=== PATIENT | female | born 1975 | race Two or more races ===

== ENCOUNTER 2018-08-03 20:26 | Emergency (ER) | payer MEDICAID, OTHER ==
[~2018-08-03] VITALS: Ht 167.6 cm; Wt 86.2 kg
--- NOTE | 2018-08-03 20:50 | NUR ---
PT BIB SELF. COMP OF HAVING L SIDE FACIAL WEAKNESS. -NEURO DEFICITS NOTED. NO ACUTE DISTRESS. -N/V -DIZZINESS. +HEADACHE. PT AOX4. STROKE EVAL COMPLETE. MD AWARE OF PT CONDITION. AWAITING EVAL.
[2018-08-03 22:15] VITALS: BP 136/81
== END 2018-08-03 22:16 | disposition home or self-care (01) ==
LOC: ER 20:28
DX: G51.0 Bell's palsy (principal); R51 Headache; I10 Essential (primary) hypertension; F17.200 Nicotine dependence, unspecified, uncomplicated; Z88.6 Allergy status to analgesic agent
CPT/HCPCS: 70450; 99284; A4606

== ENCOUNTER 2019-06-08 09:59 | Emergency (ER) | payer MEDICAID ==
[~2019-06-08] VITALS: Ht 165.1 cm; Wt 88.0 kg
[2019-06-08 10:17] VITALS: BP 140/82
[2019-06-08] MEDS ORDERED: IBUPROFEN 600 MG TABLET PO ONE ×2 (11:00→11:17)
[2019-06-08] MEDS ORDERED: ONDANSETRON 4 MG TAB.RAPDIS SL ONE (11:00)
[2019-06-08] MEDS ORDERED: DEXAMETHASONE 1 MG TABLET PO ONE (11:00)
[2019-06-08] MEDS ORDERED: DEXAMETHASONE 1 MG TABLET ONE (11:16)
[2019-06-08] MEDS ORDERED: ONDANSETRON 4 MG TAB.RAPDIS ONE (11:17)
[2019-06-08] MEDS ORDERED: DEXAMETHASONE 4 MG TABLET ONE (11:17)
== END 2019-06-08 12:03 | disposition home or self-care (01) ==
LOC: ER 10:03
DX: M77.11 Lateral epicondylitis, right elbow (principal); I10 Essential (primary) hypertension; F17.200 Nicotine dependence, unspecified, uncomplicated; Z88.6 Allergy status to analgesic agent
CPT/HCPCS: 73080; 99284; J8540 ×2; Q0162